=== PATIENT | male | born 1995 | race Hispanic/Latino ===

== ENCOUNTER 2017-11-10 05:34 | Emergency (ER) | payer OTHER ==
[2017-11-10 06:00] LABS: Lavender RECEIVED; Red RECEIVED
[2017-11-10 06:26] LABS: Anion Gap 10 mmol/L (10-20); BUN (Urea Nitrogen) 8 mg/dL (8.9-20.6); Calc. Creatinine Clearance 0 mL/min (70-130); Calcium 8.7 mg/dL (7.8-10.44); Carbon Dioxide 24 mmol/L (22-29); Chloride 108 mmol/L (98-107); Estimated GFR-MDRD Greater than 90; Glucose 129 mg/dL (70-105); Potassium 3.7 mmol/L (3.5-5.1); Sodium 138 mmol/L (136-145)
--- NOTE | 2017-11-19 12:19 | EKG ---
Test Reason : Blood Pressure : / mmHG Vent. Rate : 067 BPM Atrial Rate : 067 BPM P-R Int : 174 ms QRS Dur : 098 ms QT Int : 372 ms P-R-T Axes : 046 084 046 degrees QTc Int : 393 ms Normal sinus rhythm with sinus arrhythmia Normal ECG Confirmed by LI LANDRY ([id number]), editorial assistant DELVIN BURGOS ([id number] on 11/19/2017 12:18:53 PM Referred By: Confirmed By:LI LANDRY
== END 2017-11-10 06:45 ==
LOC: ERS 05:34
DX: R56.9 Unspecified convulsions (principal); Z91.19 Patient's noncompliance with other medical treatment and regimen
CPT/HCPCS: 80048; 80185; 93005